=== PATIENT | male | born 1970 | race Hispanic/Latino ===

== ENCOUNTER 2018-10-29 16:36 | Emergency (ER) | payer MEDICARE ==
[2018-10-29 16:45] VITALS: BMI 27.8
[2018-10-29] MEDS ORDERED: Sodium Chloride 0.9% 1,000 ML IV STA ×2 (17:01→17:47)
[2018-10-29] MEDS ORDERED: DiphenhydrAMINE 50 mg/ml Inj IVP STA (17:01)
--- NOTE | 2018-10-29 18:14 | ED PDOC ---
Arrival/HPI - General Chief Complaint: Allergic Reaction Time Seen by Provider: 10/29/18 16:43 Historian: Patient - History of Present Illness Narrative History of Present Illness (Text): 10/29/18 18:09 48-year-old male presents today with rash and pruritus that started around 2 PM after eating new cookies. Patient states he is allergic to iodine and flaxseed oil. Patient states that the cookies do not contain flaxseed oil per the label. Patient states he immediately developed a slight rash to the neck and arms with some pruritus. Patient states he tried to find Benadryl at home but was unsuccessful. He states he felt a slight tingle in the back of the throat which has since resolved. pt states he has nasal congestion. Patient denies chest pain or shortness of breath. He denies fevers or chills. Patient states the rash is slowly or is resolving upon arrival to the ER. Patient states about 30 minutes after eating the cookies he felt a little nauseous and made himself vomit. pt denies feeling of throat closing. no other complaints. Past Medical History - Provider Review Nursing Documentation Reviewed: Yes - Travel History Have you recently traveled outside [place] w/in the past 3 mons?: No - Infectious Disease Hx of Infectious Diseases: None - Tetanus Immunization Tetanus Immunization: Unknown - Gastrointestinal Hx Colostomy: Yes (left abdomen) - Psychiatric Hx Schizophrenia: Yes Hx Substance Use: No - Surgical History Other/Comment: Hx of colostomy - Anesthesia Hx Anesthesia: No Family/Social History - Physician Review Nursing Documentation Reviewed: Yes Family/Social History: Unknown Family HX Smoking Status: Never Smoked Hx Alcohol Use: No Hx Substance Use: No Allergies/Home Meds Allergies/Adverse Reactions: Allergies iodine Allergy (Verified 10/29/18 16:46) RASH Home Medications: Home Meds Medication Instructions Recorded Confirmed Divalproex [Depakote ER] 1,000 mg PO HS 10/29/18 10/29/18 FLUoxetine [Prozac] 10 mg PO DAILY 10/29/18 10/29/18 Risperidone [Risperdal] 4 mg PO HS 10/29/18 10/29/18 Review of Systems - Review of Systems Constitutional: absent: Fatigue, Fevers ENT: Sinus Congestion Respiratory: absent: SOB, Cough Cardiovascular: absent: Chest Pain, Palpitations Gastrointestinal: Nausea (resolved), Vomiting (once. ). absent: Abdominal Pain, Constipation, Diarrhea Genitourinary Male: absent: Dysuria Musculoskeletal: absent: Arthralgias Skin: Rash, Pruritis Psychiatric: absent: Anxiety, Depression Physical Exam Vital Signs Reviewed: Yes Vital Signs Temp Pulse Resp BP Pulse Ox 10/29/18 17:23 142 H 14 144/78 99 10/29/18 16:36 98.3 F 123 H 16 123/77 100 Temperature: Afebrile Blood Pressure: Normal Pulse: Tachycardic Respiratory Rate: Normal Appearance: Positive for: Well-Appearing, Non-Toxic, Comfortable Pain Distress: None Mental Status: Positive for: Alert and Oriented X 3 - Systems Exam Head: Present: Atraumatic Mouth: Present: Moist Mucous Membranes, Normal Lips, Normal Tounge. No: Drooling, Trismus Pharnyx: Present: Normal. No: ERYTHEMA, EXUDATE, TONSILS ENLARGED, Peritonsilar Swelling, Uvular Deviation, Muffled/Hoarse Voice, Strider, Soft Palate/Uvular Edema Nose (External): Present: Atraumatic Nose (Internal): Present: Normal Inspection Neck: Present: Normal Range of Motion Respiratory/Chest: Present: Clear to Auscultation, Good Air Exchange. No: Respiratory Distress, Accessory Muscle Use Cardiovascular: Present: Regular Rate and Rhythm, Normal S1, S2. No: Murmurs Upper Extremity: Present: Normal ROM Lower Extremity: Present: Normal ROM Neurological: Present: GCS=15, Speech Normal Skin: Present: Warm, Dry, Rashes, Other (Erythema noted around the neck. There are multiple raised hives along the volar aspects of the arms bilaterally. There is dry excoriations noted to the dorsal aspect of the forearms bilaterally as well as the right thigh.) Psychiatric: Present: Alert, Oriented x 3 Medical Decision Making ED Course and Treatment: 10/29/18 18:52 Patient is nontoxic well-appearing in no distress with stable. slightly tachycardic no angioedema. Lungs are clear to auscultation bilaterally there is no wheezing noted. The airway is patent Benadryl 50 mg IV Solu-Medrol 125 mg IV Pepcid 20 mg IV Pt given NS iv bolus Patient reassessment: After medications patient is feeling much better the lungs are clear to auscultation bilaterally the airway is patent the patient is speaking in full sentences. HR better. rash resolved. I advised taking Benadryl every 6 hours as needed for itch as well as prednisone daily x4 days. advised pepcid daily as prescribed. Advised patient to follow up with primary care physician within the next 2 days and return if symptoms worsen persist or if new symptoms develop Patient verbalizes understanding of discharge instructions and need for immediate followup. All aspects of this case were discussed the attending of record. Impression :Allergic reaction Benadryl every 6 hours as needed for itch Prednisone once daily x4 days Pepcid one tablet daily Increase fluids Follow up with the primary care physician tomorrow Follow up with the contact finger assembler. Return Immediately if symptoms worsen persist or if new symptoms develop: Shortness of breath, feeling of throat closing, difficulty speaking or any other concerning symptoms develop Reassessment Condition: Re-examined, Improved - Medication Orders Current Medication Orders: Sodium Chloride (Sodium Chloride 0.9%) 1,000 mls @ 999 mls/hr IV .Q1H1M STA Stop: 10/29/18 18:47 Discontinued Medications Diphenhydramine HCl (Benadryl) 50 mg IVP STAT STA Stop: 10/29/18 17:02 Last Admin: 10/29/18 17:11 Dose: 50 mg IVP Administration Document 10/29/18 17:11 MA (Rec: 10/29/18 17:11 [id number] Charges for Administration # of IVP Administrations 1 Famotidine (Pepcid) 20 mg IVP STAT STA Stop: 10/29/18 17:02 Last Admin: 10/29/18 17:11 Dose: 20 mg IVP Administration Document 10/29/18 17:11 MA (Rec: 10/29/18 17:11 [id number] Charges for Administration # of IVP Administrations 1 Sodium Chloride (Sodium Chloride 0.9%) 1,000 mls @ 999 mls/hr IV .Q1H1M STA Stop: 10/29/18 18:01 Last Admin: 10/29/18 17:11 Dose: 999 mls/hr eMAR Start Stop Document 10/29/18 17:11 MA (Rec: 10/29/18 17:11 [id number] Intravenous Solution Start Date 10/29/18 Start Time 17:11 Methylprednisolone (Solu-Medrol) 125 mg IVP STAT STA Stop: 10/29/18 17:02 Last Admin: 10/29/18 17:11 Dose: 125 mg IVP Administration Document 10/29/18 17:11 [facility] (Rec: 10/29/18 17:11 [facility] [id number]) Charges for Administration # of IVP Administrations 1 Disposition/Present on Arrival - Present on Arrival Any Indicators Present on Arrival: No History of DVT/PE: No History of Uncontrolled Diabetes: No Urinary Catheter: No History of Decub. Ulcer: No History Surgical Site Infection Following: None - Disposition Have Diagnosis and Disposition been Completed?: Yes Diagnosis: Allergic reaction Disposition: HOME/ ROUTINE Disposition Time: 19:08 Patient Plan: Discharge Patient Problems: Current Active Problems Problem Status Onset Allergic reaction Acute Condition: GOOD Discharge Instructions (ExitCare): Ruth (HERI) Additional Instructions: Benadryl every 6 hours as needed for itch Prednisone once daily x4 days Pepcid one tablet daily Increase fluids Follow up with the primary care physician tomorrow Follow up with the contact finger assembler. Return Immediately if symptoms worsen persist or if new symptoms develop: Shortness of breath, feeling of throat closing, difficulty speaking or any other concerning symptoms develop Prescriptions: DiphenhydrAMINE [Benadryl] 25 mg PO Q6H #20 cap Famotidine [Pepcid] 20 mg PO DAILY #30 tab predniSONE [predniSONE Tab] 3 tab PO DAILY #12 tab Referrals: So Wu DO [Primary Care Provider] - Follow up with primary Parul Hoyt MD [Medical Doctor] - Follow up with primary Mariah Aponte MD [Staff Provider] - Follow up with primary [facility] [Outside] - Follow up with primary Forms: [employer] (Citizen Of [place])
[2018-10-29 19:11] VITALS: BP 109/84; TEMP 98
[2018-10-29 19:18] VITALS: PULSE 94; RESP 16; O2SAT 99
== END 2018-10-29 19:17 | disposition home or self-care (01) ==
LOC: EDBD → ED 16:36
DX: T78.40XA Allergy, unspecified, initial encounter (principal); F20.9 Schizophrenia, unspecified
CPT/HCPCS: 96374; 96375; 99283; J1200; J2930; J7030